=== PATIENT | female | born 1990 | race Hispanic/Latino ===

== ENCOUNTER 2019-11-09 14:16 | Emergency (ER) | payer OTHER, SELFPAY ==
[2019-11-09 14:21] VITALS: BP 118/74; PULSE 87; RESP 16; TEMP 37; O2SAT 99; BMI 26.2
--- NOTE | 2019-11-09 14:36 | ED_ITS ---
HPI - Ear Problem <Rosemarie Hein PA-C - Last Filed: 11/09/19 22:28> General Chief complaint: Ear Stated complaint: Left ear infection hasn't improved w/antibiotics Time Seen by Provider: 11/09/19 14:33 Source: patient Mode of arrival: Ambulatory History of Present Illness HPI Narrative: This is a well-appearing 28-year-old with no medical history who presents complaining of severe left ear pain. Her pain began on , she did see a doctor on Sunday and was prescribed Augmentin for an otitis media. She said at the time of that exam that they told her they could not see her tympanic membrane very well due to swelling in her ear canal, she has had some discharge which is bloody looking but has been minimal. She feels like there is a fullness and pressure in her ear and as if there is something in her ear canal. Her pain has been worse at night, she has not had any fevers or chills she has a little bit of discomfort when she chews but denies any other symptoms. She has not had any recent illness, sore throat, headache, cough, neck pain or any other symptoms. MD Complaint: ear pain, ear discharge and decreased hearing Location: left ear Duration: constant Severity: moderate Exacerbating factors: chewing Discharge from ear: yes - bloody (Small amount of bloody and yellowish discharge described by patient.) Associated symptoms ear: decreased hearing and external ear tenderness Treatment prior to arrival: other (Has been taking Augmentin since Sunday) Related Data Previous Rx's Medication Instructions Recorded amoxicillin 875 mg-potassium 1 tab PO BID 10 Days #20 tab 11/07/19 clavulanate 125 mg tablet ciprofloxacin-dexamethasone 4 drop EAR-LEFT BID 7 Days #7.5 ml 11/09/19 [Ciprodex] Allergies Allergy/AdvReac Type Severity Reaction Status Date / Time No Known Drug Allergies Allergy Verified 11/09/19 14:25 Review of Systems <Rosemarie Hein PA-C - Last Filed: 11/09/19 22:28> Review of Systems Narrative: GENERAL: Denies chills, fatigue, malaise, fever, sweats. HEENT: Positive for severe left ear pain, left ear discharge, discomfort with chewing. Denies sinus pain, sore throat, difficulty swallowing, dizziness. RESPIRATORY: Denies dyspnea, cough, wheezing, hemoptysis, sputum. CARDIOVASCULAR: Denies chest pain, palpitations, orthopnea, edema, GASTROINTESTINAL: Denies nausea, vomiting, abdominal pain, diarrhea, constipation, melena. : Denies dysuria, frequency, incontinence, hematuria, urinary retention. MUSCULOSKELETAL: denies weakness, joint pain, or bony pain SKIN: Denies rash, skin lesions, or other NEUROLOGIC: Denies weakness, headache, numbness, change in speech, confusion, seizures, incoordination. PSYCHIATRIC: No concerning psychosocial issues. 12 point review of systems is negative except for those stated above Patient History <Rosemarie Hein PA-C - Last Filed: 11/09/19 22:28> Social History Smoking Status: Never smoker Smoking Status: Never smoker Substance Use Type: marijuana Exam <Rosemarie Hein PA-C - Last Filed: 11/09/19 22:28> Narrative Exam Narrative: GENERAL: 28 year old patient appears stated age. Well-nourished, well-developed patient, in moderate distress. HEAD: Atraumatic. Normocephalic. EYES: Pupils equal round and reactive. Extraocular motions intact. No scleral icterus. No injection or drainage. ENT: The right external auditory canal is normal in appearance, tympanic membrane is pearly cottrell with cone of light visible without erythema. The left tympanic membrane is poorly visualized, as the external auditory canal is significantly swollen and occluded due to swelling. There is a thick grayish white discharge in the external ear canal. No blood is noted. There is pain with palpation of the left tragus slight tenderness of the neck inferior to the left ear, and slight tenderness of the skin over the mastoid process, without notable swelling or erythema. Nose without bleeding, purulent drainage. Throat without erythema, tonsillar hypertrophy or exudate. Airway patent. NECK: Trachea midline. Non tender CARDIOVASCULAR: Regular rate and rhythm without murmurs, gallops, or rubs. RESPIRATORY: Clear to auscultation. Breath sounds equal bilaterally. No wheezes, rales, or rhonchi. GASTROINTESTINAL: Abdomen soft, non-tender, nondistended. EXTREMITIES: No edema or joint tenderness. BACK: Nontender without deformity or crepitance. No flank tenderness. NEURO: AOx3. Cranial nerves are intact. SKIN: No rash or erythema of visible areas Initial Vital Signs Initial Vital Signs: Vital Signs Temperature 98.6 F 11/09/19 14:21 Pulse Rate 87 11/09/19 14:21 Respiratory Rate 16 11/09/19 14:21 Blood Pressure 118/74 11/09/19 14:21 Pulse Oximetry 99 11/09/19 14:21 <Danielle Frazier MD - Last Filed: 11/10/19 18:10> Initial Vital Signs Initial Vital Signs: Vital Signs Temperature 98.6 F 11/09/19 14:21 Pulse Rate 87 11/09/19 14:21 Respiratory Rate 16 11/09/19 14:21 Blood Pressure 118/74 11/09/19 14:21 Pulse Oximetry 99 11/09/19 14:21 Scores <Rosemarie Hein PA-C - Last Filed: 11/09/19 22:28> GCS Jose coma scale eye opening: Spontaneous Grover coma scale verbal response: Orientated Grover coma scale motor response: Obey commands Jose coma scale total score: 15 Course <Rosemarie Hein PA-C - Last Filed: 11/09/19 22:28> Course Course Narrative: Asked attending Dr. Frazier to also look at this patient as her ear canal is so swollen that it was occluded shut, she felt she might potentially be candidate for an ear wick. However after exam she was able to open the canal enough to see the TM and the patient should be able to administer the antibiotic drops using the same technique by pulling back on her ear when she administers them. No ear wick placed. 16:11 Vital Signs Vital signs: Vital Signs - 8 hr 11/09/19 16:43 Pulse Rate 71 Respiratory Rate 16 Blood Pressure 111/71 Pulse Oximetry 99 <Danielle Frazier MD - Last Filed: 11/10/19 18:10> Vital Signs Vital signs: Vital Signs - 8 hr 11/09/19 16:43 Pulse Rate 71 Respiratory Rate 16 Blood Pressure 111/71 Pulse Oximetry 99 Medical Decision Making <MULU Hassan Last Filed: 11/09/19 22:28> Medical Records Medical records reviewed: Yes I reviewed the patient's medical records. MDM Narrative Medical decision making narrative: This is a well-appearing 28-year-old in significant pain and discomfort due to left ear pain with no significant medical history who presents complaining of ongoing left ear pain despite taking Augmentin for the past 3 days. Exam is consistent with an otitis externa, tympanic membrane is poorly visualized due to severe swelling of the external auditory canal on the left. I have very low suspicion for malignant otitis externa. Patient is provided with instructions for administration of Ciprodex and prescription for Ciprodex. A work note is provided. Also provided with emergency return precautions, advised to continue taking her oral antibiotics, all questions answered. Discharge Plan Departure Patient Disposition: Home Clinical Impression: Otitis externa Qualifiers: Otitis externa type: unspecified type Chronicity: acute Laterality: left Qualified Code(s): H60.502 - Unspecified acute noninfective otitis externa, left ear Acute ear pain Qualifiers: Laterality: left Qualified Code(s): H92.02 - Otalgia, left ear Discharge from ear Qualifiers: Laterality: left Qualified Code(s): H92.12 - Otorrhea, left ear Discharge Date/Time: 11/09/19 16:44 Instructions: Otitis Externa, DI for Otitis Externa Activity Restrictions/Additional Instructions: Thank you for letting us be part of your care in the emergency department today. You have an external ear infection which is an infection of your ear canal. The treatment for this is ear drops that need to be instilled twice a day, when you place these you may need someone to assist you in order to make sure that they are going in all the way. Your canal is very swollen and you will have to have someone pulled back on your ear cartilage or do this herself as you instill the drops. To make sure that the medicine gets down into the ear canal past the swelling. This should begin to improve in the next few days but please take the entire dose as prescribed. I want you to continue taking the oral antibiotics you have been prescribed for an otitis media as well. I have provided you with a work note for the next couple of days if you are not feeling better and you need to use it that is totally appropriate. If you develops new or concerning symptoms do not hesitate to seek medical care or be re-evaluated. There is no evidence of an emergent or life threatening illness at this time, but follow up with your doctor in 1-2 days is recommended nonetheless to continue to rule out serious underlying causes of your symptoms. Please call the office for an appointment. Please return to the Emergency Department for any worsening or persistent symptoms. Please take medications as directed. Prescriptions: New Ciprodex 0.3-0.1 % drops,suspension 4 drop EAR-LEFT BID 7 Days Qty: 7.5 RF: 0 No Action amoxicillin-pot clavulanate [Augmentin] 875-125 mg tablet 1 tab PO BID 10 Days Qty: 20 RF: 0 Referrals: Miscellaneous,Doctor, [Primary Care Provider] - Stand Alone Forms: Work Release Note <Danielle Frazier MD - Last Filed: 11/10/19 18:10> Cosign ED Attending Cosignature Attestation: I was immediately available in the department for consultation throughout this patient's visit. I agree with documentation as above. Danielle Frazier MD
[2019-11-09 16:43] VITALS: BP 111/71; PULSE 71; RESP 16; O2SAT 99
== END 2019-11-09 16:44 | disposition home or self-care (01) ==
PROVIDERS: Emergency Provider Student in an Organized Health Care Education/Training Program
DX: H60.502 Unspecified acute noninfective otitis externa, left ear (principal); H92.02 Otalgia, left ear; H92.12 Otorrhea, left ear
CPT/HCPCS: 99281